=== PATIENT | female | born 1980 | race Two or more races ===

== ENCOUNTER 2019-09-19 12:39 | Emergency (ER) | payer OTHER ==
[~2019-09-19] VITALS: Ht 167.6 cm; Wt 53.1 kg
[2019-09-19 12:55] VITALS: BP 114/77
--- NOTE | 2019-09-19 12:55 | NUR ---
ED Nurse Note: pt walked in to ER from home due to tailbone pain 08/05. pt aao x4 and ambulatory. pt denied trauma. pt reported bump on tailbone as well. pt unable to sit due to tailbone pain. no acute cardiac or pulmonary distress noted at this moment.
--- NOTE | 2019-09-19 13:12 | NUR ---
ED Nurse Note: ERPA at bedside assessing tailbone.
[2019-09-19] MEDS ORDERED: Ketorolac 30mg Inj IM ONE (13:15)
--- NOTE | 2019-09-19 13:18 | Emergency Room Report ---
History of Present Illness General Chief Complaint: Pain Source: Patient Present Illness HPI 39-year-old female with no significant past medical history here complaining of 5 days of a painful mass on her tailbone and perianal. Denies fall or injury, however reports that she goes to the gym a lot and lifts lots of weeks. Patient also reports that she has been sitting along for the past few days due to her recent trip to [place]. Complains of chills however denies fever, shortness of breath, chest pain, palpitation, hemorrhoids, constipation, and other associated symptoms. a Pilonidal cyst is noted without abscess formation and slightly warm to touch.no pus drainage noted. Patient is requesting for symptoms to go away right away as she wants to be able to sit and reports that she went to a chiropractor before coming here and reports that feels worse after chiropractor tried to press on the affected area. Allergies: Coded Allergies: No Known Allergies (Unverified , 09/19/19) Patient History Past Medical History: see triage record Past Surgical History: unable to obtain Pertinent Family History: none Last Menstrual Period: 09/15/19 Now: No Immunizations: UTD Reviewed Nursing Documentation: PMH: Agreed; PSxH: Agreed Nursing Documentation-PMH Past Medical History: No Stated History Review of Systems All Other Systems: negative except mentioned in HPI Physical Exam Vital Signs Date Time Temp Pulse Resp B/P (MAP) Pulse Ox O2 Delivery O2 Flow Rate FiO2 09/19/19 12:44 98.2 81 19 114/77 (89) 96 Room Air Sp02 EP Interpretation: reviewed, normal General Appearance: no apparent distress, alert, GCS 15, non-toxic Head: normocephalic, atraumatic Eyes: bilateral eye normal inspection, bilateral eye PERRL ENT: hearing grossly normal, normal pharynx, no angioedema, normal voice Neck: full range of motion, supple/symm/no masses Respiratory: chest non-tender, lungs clear, normal breath sounds, no rhonchi, no wheezing, speaking full sentences Cardiovascular #1: regular rate, rhythm, no edema, no murmur Gastrointestinal: normal bowel sounds, non tender, soft, non-distended, no guarding, no rebound Rectal: other - piolonidal cyst w/o abscess Genitourinary: no CVA tenderness Musculoskeletal: back normal, normal range of motion, no calf tenderness, gait/ station normal, non-tender Neurologic: alert, motor strength/tone normal, oriented x3, sensory intact, responsive, speech normal Psychiatric: judgement/insight normal, memory normal, mood/affect normal, no suicidal/homicidal ideation Skin: no rash Lymphatic: no adenopathy Medical Decision Making PA Attestation All my diagnosis and treatment plans were reviewed ad discussed with my supervising physician Dr. Mcgovern Diagnostic Impression: Primary Impression: Pilonidal cyst without abscess ER Course 39-year-old female with no significant past medical history here complaining of 5 days of a painful mass on her tailbone and perianal. Denies fall or injury, however reports that she goes to the gym a lot and lifts lots of weeks. Patient also reports that she has been sitting along for the past few days due to her recent trip to [place]. Complains of chills however denies fever, shortness of breath, chest pain, palpitation, hemorrhoids, constipation, and other associated symptoms. a Pilonidal cyst is noted without abscess formation and slightly warm to touch.no pus drainage noted. Patient is requesting for symptoms to go away right away as she wants to be able to sit and reports that she went to a chiropractor before coming here and reports that feels worse after chiropractor tried to press on the affected area. Ddx considered but are not limited to : Cellulitis,mendez cyst with/without abscess superficial infection, abscess Vital signs: are WNL, pt. is afebrile H&PE are most consistent with:pilonidal cyst without abscess ORDERS: Keflex, Bactrim DS, ibuprofen 800, Tylenol 3 very few numbers ED INTERVENTIONS: Toradol DISCHARGE: At this time pt. is stable for d/c to home. Will provide printed patient care instructions, and any necessary prescriptions. Care plan and follow up instructions have been discussed with the patient prior to discharge. I advised patient to follow-up with her primary care physician Dr. Carrizales for further assessment also do not go to chiropractor for the time being, avoid going to the gym and all other strenuous physical activity. Referral to specialist may be needed to be requested by Dr. Carrizales in case of abscess formation Last Vital Signs Date Time Temp Pulse Resp B/P (MAP) Pulse Ox O2 Delivery O2 Flow Rate FiO2 11/24/19 12:44 98.2 81 19 114/77 (89) 96 Room Air Disposition: HOME, SELF-CARE Condition: Stable Scripts Acetaminophen With Codeine (T#3) (TYLENOL #3 TAB*) Y Tab 1 TAB ORAL Q8HR PRN for For Pain for 3 Days, #10 TAB Prov: Darin Coffey 09/19/19 Ibuprofen (Ibu) 800 Mg Tablet 800 MG PO TID, #21 TAB Prov: Darin Coffey 09/19/19 Cephalexin* (KEFLEX*) 500 Mg Capsule 500 MG ORAL EVERY 6 HOURS for 7 Days, #28 CAP Prov: Darin Coffey 09/19/19 Trimethoprim/Sulfamethoxazole 160/800* (BACTRIM DS TABLET*) 1 Each Tablet 1 TAB ORAL TWICE A DAY for 7 Days, #14 TAB Prov: Darin Coffey 09/19/19 Referrals: Todd Carrizales MD (PCP) Patient Instructions: Pilonidal Cyst Additional Instructions: Take medication as directed, follow-up with your primary care physician, if worsening symptoms return to the emergency room Darin Coffey Sep 19, 2019 13:18
[2019-09-19] MEDS ORDERED: CEPHALEXIN500 MG ORAL (13:21)
[2019-09-19] MEDS ORDERED: ACETAMINOPHEN-1 EAC1 ORAL (13:21)
[2019-09-19] MEDS ORDERED: IBU800 MG PO (13:21)
[2019-09-19] MEDS ORDERED: BACTRIM DS TAB1 EAC1 ORAL (13:21)
[2019-09-19 13:26] VITALS: BP 121/64
--- NOTE | 2019-09-19 13:27 | NUR ---
ED Nurse Note: Pt cleared by health care Provider for discharge. DC instructions/prescription was given and explained to pt and verbalized understanding of teachings. All medical deviecs such as ID band removed. Pt is AAO x4, ambulatory and left with all personal belongings.
== END 2019-09-19 13:27 | disposition home or self-care (01) ==
LOC: EMR 13:03
DX: L05.91 Pilonidal cyst without abscess (principal)
CPT/HCPCS: 96372; J1885; Z7502; 99283

== ENCOUNTER 2020-02-18 17:28 | Emergency (ER) | payer MEDICAID, OTHER ==
[~2020-02-18] VITALS: Ht 167.6 cm; Wt 52.2 kg
[~2020-02-18 17:28] MED LIST: ACETAMINOPHEN-1 EAC1 ORAL; BACTRIM DS TAB1 EAC1 ORAL; CEPHALEXIN500 MG ORAL; IBU800 MG PO
[2020-02-18 17:51] VITALS: BP 104/75
--- NOTE | 2020-02-18 18:09 | Emergency Room Report ---
History of Present Illness General Chief Complaint: Skin Rash/Abscess Source: Patient Present Illness HPI 39 YO Female presents to the ED c/o Itching, swelling, and erythema of Left thigh x 2 days. pt. reports increased swelling and "hard" sensation under the skin. pt reports she has been cleaning it regularly. Pt .also request refill of Adderall. She reports she is unable to get a refill from her PCP as she doesn' t see her PCP regularly and she tries not to have to take it so she hasn't been rx'd it in awhile. Pt. denies fevers, chills or swollen tender lymph nodes. Denies lesions/rashes elsewhere on the body. Denies new medications or body washes or creams. Denies swelling of the lips, tongue , throat or airway. Denies wheezing, or shortness of breath. Denies recent travel, recent illness or ill contacts. denies blisters, oral lesions, or sloughing of the skin. She denies pain at this time. Allergies: Coded Allergies: No Known Allergies (Unverified , 09/19/19) COVID-19 Screening Contact w/high risk pt: No Recent Travel to affected area: No Experienced COVID-19 symptoms?: No Patient History Past Medical History: see triage record Past Surgical History: none Pertinent Family History: none Last Menstrual Period: 3 weeks ago Reviewed Nursing Documentation: PMH: Agreed; PSxH: Agreed Nursing Documentation-PMH Past Medical History: No Stated History Review of Systems All Other Systems: negative except mentioned in HPI Physical Exam Vital Signs Date Time Temp Pulse Resp B/P (MAP) Pulse Ox O2 Delivery O2 Flow Rate FiO2 02/18/20 17:51 98.2 16 104/75 02/18/20 17:51 66 Sp02 EP Interpretation: reviewed, normal General Appearance: no apparent distress, alert, GCS 15, non-toxic Head: normocephalic, atraumatic Eyes: bilateral eye normal inspection, bilateral eye PERRL ENT: hearing grossly normal, normal voice Neck: full range of motion Respiratory: chest non-tender, lungs clear, normal breath sounds, no wheezing, speaking full sentences Cardiovascular #1: regular rate, rhythm, normal capillary refill Gastrointestinal: non tender, soft Rectal: deferred Genitourinary: normal inspection Musculoskeletal: back normal, normal range of motion, gait/station normal, non- tender Neurologic: alert, motor strength/tone normal, oriented x3, sensory intact, responsive, speech normal Psychiatric: judgement/insight normal Skin: rash - Insect bite of the left thigh with mild cellulitis. - 1cm in diameter Lymphatic: no adenopathy Medical Decision Making PA Attestation Dr. Mora is my supervising Physician whom patient management has been discussed with. Diagnostic Impression: Primary Impression: Insect bite Qualified Codes: S70.362A - Insect bite (nonvenomous), left thigh, initial encounter; W57.XXXA - Bitten or stung by nonvenomous insect and other nonvenomous arthropods, initial encounter Additional Impression: Cellulitis Qualified Codes: L03.116 - Cellulitis of left lower limb ER Course 39 YO Female presents to the ED c/o Itching, swelling, and erythema of Left thigh x 2 days. pt. reports increased swelling and "hard" sensation under the skin. pt reports she has been cleaning it regularly. Pt .also request refill of Adderall. She reports she is unable to get a refill from her PCP as she doesn' t see her PCP regularly and she tries not to have to take it so she hasnt been rx'd it in awhile. Pt. denies fevers, chills or swollen tender lymph nodes. Denies lesions/rashes elsewhere on the body. Denies new medications or body washes or creams. Denies swelling of the lips, tongue , throat or airway. Denies wheezing, or shortness of breath. Denies recent travel, recent illness or ill contacts. denies blisters, oral lesions, or sloughing of the skin Ddx considered but are not limited to cellulitis, scabies, insect bites, tic bites, spider bites, contact dermatitis, Drug reaction, allergic reaction, fungal infection, lice. Vital signs: are WNL, pt. is afebrile H&PE are most consistent with Insect bite of the left thigh with mild cellulitis. ORDERS: none required at this time, the diagnosis is clinical ED INTERVENTIONS: None required at this time. d/w pt. that for controlled substance refills she needs to have that done by her primary prescribing physician or psychiatric professional. D/w pt. that Adderall is not a medication that is routinely refilled at the emergency department on an emergent basis. D/w pt. will give [facility] information. DISCHARGE: At this time pt. is stable for d/c to home. Will provide printed patient care instructions, and any necessary prescriptions. Care plan and follow up instructions have been discussed with the patient prior to discharge. Last Vital Signs Date Time Temp Pulse Resp B/P (MAP) Pulse Ox O2 Delivery O2 Flow Rate FiO2 02/18/20 17:51 98.2 66 16 104/75 (85) Disposition: HOME, SELF-CARE Condition: Stable Scripts No Active Prescriptions or Reported Meds Referrals: Todd Carrizales MD (PCP) [facility] Patient Instructions: Cellulitis, [id number], Insect Bite, [id number] Additional Instructions: Take medications as directed. Follow up with a Primary Care Provider in 3-5 days, even if your symptoms have resolved. --Please review [facility] for medication management, if you do not already have a primary care provider who is regularly prescribing and following you. Return sooner to ED if new symptoms occur, or current symptoms become worse. - Please note that this Emergency Department Report was dictated using [employer] technology software, occasionally this can lead to erroneous entry secondary to interpretation by the dictation equipment. Maite Baez Feb 18, 2020 18:09
[2020-02-18] MEDS ORDERED: CEPHALEXIN500 MG ORAL (18:11)
[2020-02-18] MEDS ORDERED: ANTI-ITCH28 G1 TP (18:11)
--- NOTE | 2020-02-18 18:16 | NUR ---
ER DISCHARGE NOTE: Patient is cleared to be discharged per ERMD. Patient was given dc and prescription instructions. Patient was able to verbalize understanding of it. ID band removed. Patient ambulated out with steady gait with all her belongings.
== END 2020-02-18 18:20 | disposition home or self-care (01) ==
LOC: EMR 18:00
DX: S70.362A Insect bite (nonvenomous), left thigh, initial encounter (principal); L03.116 Cellulitis of left lower limb; W57.XXXA Bitten or stung by nonvenomous insect and other nonvenomous arthropods, initial encounter; Y92.9 Unspecified place or not applicable
CPT/HCPCS: 99281

== ENCOUNTER 2020-03-28 11:38 | Emergency (ER) | payer MEDICAID, OTHER ==
[~2020-03-28] VITALS: Ht 170.2 cm; Wt 53.1 kg
[~2020-03-28 11:38] MED LIST changes: +ANTI-ITCH28 G1 TP
[2020-03-28 12:15] VITALS: BP 99/65
[2020-03-28 12:32] LABS: BASOPHILS % (AUTO) 0.8 % (0.0-2.0); EOSINOPHILS % (AUTO) 0.5 % (0.0-3.0); HEMATOCRIT 37.8 % (37.0-47.0); HEMOGLOBIN 13.8 G/DL (12.0-16.0); LYMPHOCYTES % (AUTO) 19.8 % (20.0-45.0); MEAN CORPUSCULAR VOLUME 87 FL (80-99); MONOCYTES % (AUTO) 6.9 % (1.0-10.0); NEUTROPHILS % (AUTO) 72.1 % (45.0-75.0); PLATELET COUNT 242 K/UL (150-450); RED BLOOD COUNT 4.34 M/UL (4.20-5.40); RED CELL DISTRIBUTION WIDTH 10.7 % (11.6-14.8)
[2020-03-28 12:33] LABS: APPEARANCE,URINE VERY CLOUDY; BILIRUBIN, URINE NEGATIVE (NEGATIVE); GLUCOSE, URINE (UA) NEGATIVE (NEGATIVE); KETONES,URINE 1+ (NEGATIVE); LEUKOCYTE ESTERASE ,URINE 3+ (NEGATIVE); NITRITE,URINE POSITIVE (NEGATIVE); PH,URINE 5 (4.5-8.0); PROTEIN,URINE 3+ (NEGATIVE); UROBILINOGEN,URINE NORMAL MG/DL (0.0-1.0)
[2020-03-28 12:34] LABS: COLOR,URINE YELLOW
[2020-03-28 12:50] LABS: ANION GAP 7 mmol/L (5-15); BLOOD UREA NITROGEN 13 mg/dL (7-18); CALCIUM 9.1 MG/DL (8.5-10.1); CARBON DIOXIDE 30 MMOL/L (21-32); CHLORIDE 105 MMOL/L (98-107); CREATININE 0.8 MG/DL (0.55-1.30); POTASSIUM 4.1 MMOL/L (3.5-5.1); SODIUM 142 MMOL/L (136-145)
[2020-03-28 12:55] LABS: ALANINE AMINOTRANSFERASE 19 U/L (12-78); ALBUMIN 3.9 G/DL (3.4-5.0); ALBUMIN/GLOBULIN RATIO 1.1 (1.0-2.7); ALKALINE PHOSPHATASE 34 U/L (46-116); ASPARTATE AMINO TRANSFERASE 12 U/L (15-37); BILIRUBIN,TOTAL 0.5 MG/DL (0.2-1.0)
[2020-03-28] MEDS ORDERED: cefTRIAXone 1 GM in NS 55 ML IVPB ONE (13:00)
[2020-03-28] MEDS ORDERED: CEPHALEXIN500 M1 ORAL (13:34)
[2020-03-28] MEDS ORDERED: PHENAZOPYRIDIN100 MG ORAL (13:35)
--- NOTE | 2020-03-28 13:45 | Emergency Room Report ---
History of Present Illness General Chief Complaint: Female Urogenital Problems Source: Patient Present Illness HPI Disclaimer: Please note that this report is being documented using [employer] technology. This can lead to erroneous entry secondary to incorrect interpretation by the dictating instrument. HPI: 39-year-old female no reported past medical history presented for complaints of dysuria and hematuria. Symptoms present for the last 2 days. She denies any fevers nausea or vomiting. No shortness of breath or cough. Mild lower abdominal pain. She actually denies vaginal bleeding but believes the blood is coming from her urine. Menstrual cycle 7 days ago. PMH: Patient denies any past medical history PSH: Reviewed Social Hx: She denies smoking drinking or illicit drug use Allergies: Coded Allergies: CIPROFLOXACIN (Verified Allergy, Unknown, 03/28/20) swelling COVID-19 Screening Contact w/high risk pt: No Recent Travel to affected area: No Experienced COVID-19 symptoms?: No COVID-19 Testing performed HVAC LEAD: No Patient History Last Menstrual Period: 03/24/20 Reviewed Nursing Documentation: PMH: Agreed; PSxH: Agreed Nursing Documentation-PMH Past Medical History: No Stated History Review of Systems All Other Systems: negative except mentioned in HPI Physical Exam Vital Signs Date Time Temp Pulse Resp B/P (MAP) Pulse Ox O2 Delivery O2 Flow Rate FiO2 03/28/20 11:45 98.2 98 15 99/65 (76) 99 Room Air Sp02 EP Interpretation: reviewed, normal General Appearance: well appearing, no apparent distress Head: normocephalic, atraumatic Eyes: bilateral eye PERRL, bilateral eye EOMI ENT: hearing grossly normal, moist mucus membranes Neck: full range of motion, supple Respiratory: lungs clear, normal breath sounds, no rhonchi, no respiratory distress, no retraction, no wheezing Cardiovascular #1: normal peripheral pulses, regular rate, rhythm, no murmur Gastrointestinal: non tender, soft, non-distended, no guarding Musculoskeletal: other - No CVA tenderness bilaterally Neurologic: alert, oriented x3, no focal defects Skin: normal color, warm/dry Medical Decision Making Diagnostic Impression: Primary Impression: UTI (urinary tract infection) ER Course MDM: Differential diagnosis included but not limited to UTI, pyelonephritis, less likely ectopic . Less likely surgical abdominal disease Clinical course-patient placed on a gurney, IV fluids given. Laboratory studies were sent. No leukocytosis, urinalysis positive leukocytes and nitrites with blood. Antibiotics given. Patient otherwise nontoxic no acute distress will be discharged home with antibiotics and Pyridium. Follow-up PMD. Return precautions given. Labs - Laboratory Tests Test 03/28/20 12:13 White Blood Count 8.0 K/UL (4.8-10.8) Red Blood Count 4.34 M/UL (4.20-5.40) Hemoglobin 13.8 G/DL (12.0-16.0) Hematocrit 37.8 % (37.0-47.0) Mean Corpuscular Volume 87 FL (80-99) Mean Corpuscular Hemoglobin 31.7 PG (27.0-31.0) H Mean Corpuscular Hemoglobin Concent 36.5 G/DL (32.0-36.0) H Red Cell Distribution Width 10.7 % (11.6-14.8) L Platelet Count 242 K/UL (150-450) Mean Platelet Volume 5.6 FL (6.5-10.1) L Neutrophils (%) (Auto) 72.1 % (45.0-75.0) Lymphocytes (%) (Auto) 19.8 % (20.0-45.0) L Monocytes (%) (Auto) 6.9 % (1.0-10.0) Eosinophils (%) (Auto) 0.5 % (0.0-3.0) Basophils (%) (Auto) 0.8 % (0.0-2.0) Urine Color Yellow Urine Appearance Very cloudy Urine pH 5 (4.5-8.0) Urine Specific [place] 1.025 (1.005-1.035) Urine Protein 3+ (NEGATIVE) H Urine Glucose (UA) Negative (NEGATIVE) Urine Ketones 1+ (NEGATIVE) H Urine Blood 5+ (NEGATIVE) H Urine Nitrite Positive (NEGATIVE) H Urine Bilirubin Negative (NEGATIVE) Urine Urobilinogen Normal MG/DL (0.0-1.0) Urine Leukocyte Esterase 3+ (NEGATIVE) H Urine RBC Tntc /HPF (0 - 2) H Urine WBC Tntc /HPF (0 - 2) H Urine Squamous Epithelial Cells Many /LPF (NONE/OCC) H Urine Bacteria Moderate /HPF (NONE) H Urine HCG, Qualitative Negative (NEGATIVE) Sodium Level 142 MMOL/L (136-145) Potassium Level 4.1 MMOL/L (3.5-5.1) Chloride Level 105 MMOL/L (98-107) Carbon Dioxide Level 30 MMOL/L (21-32) Anion Gap 7 mmol/L (5-15) Blood Urea Nitrogen 13 mg/dL (7-18) Creatinine 0.8 MG/DL (0.55-1.30) Estimated Glomerular Filtration Rate > 60 mL/min (>60) Glucose Level 86 MG/DL (74-106) Calcium Level 9.1 MG/DL (8.5-10.1) Total Bilirubin 0.5 MG/DL (0.2-1.0) Aspartate Amino Transferase (AST) 12 U/L (15-37) L Alanine Aminotransferase (ALT) 19 U/L (12-78) Alkaline Phosphatase 34 U/L (46-116) L Total Protein 7.4 G/DL (6.4-8.2) Albumin 3.9 G/DL (3.4-5.0) Globulin 3.5 g/dL Albumin/Globulin Ratio 1.1 (1.0-2.7) Lipase 311 U/L (73-393) On reevaluation: Patient in no acute distress Plan-discharge home on antibiotics and follow-up PMD. Given return precautions. Last Vital Signs Date Time Temp Pulse Resp B/P (MAP) Pulse Ox O2 Delivery O2 Flow Rate FiO2 03/28/20 12:15 98.2 15 99/65 99 Room Air 03/28/20 11:45 98 Status: improved Disposition: HOME, SELF-CARE Condition: Stable Scripts Phenazopyridine Hcl* (PYRIDIUM*) 100 Mg Tablet 100 MG ORAL THREE TIMES A DAY PRN for For Pain, #20 TAB Prov: Luiz Moore M.D. 03/28/20 Cephalexin* (KEFLEX*) 500 Mg Tablet 500 MG ORAL EVERY 6 HOURS for 7 Days, CAP Prov: Luiz Moore M.D. 03/28/20 Patient Instructions: Urinary Tract Infection Additional Instructions: Patient is instructed to follow-up with her primary care doctor, primary care clinic or [facility] in 1 to 2 days. Patient instructed to return for any worsening symptoms or concerns. Disclaimer: Please note that this report is being documented using [employer] technology. This can lead to erroneous entry secondary to incorrect interpretation by the dictating instrument. Luiz Moore M.D. Mar 28, 2020 13:45
[2020-03-28 13:47] VITALS: BP 100/75
== END 2020-03-28 13:47 | disposition home or self-care (01) ==
LOC: EMR 12:55
DX: N39.0 Urinary tract infection, site not specified (principal); R10.30 Lower abdominal pain, unspecified; Z88.8 Allergy status to other drugs, medicaments and biological substances
CPT/HCPCS: 36415; 80053; 81003; 81025; 83690; 85025; 87086; 87181; 96365; J0696; J7030; Z7502; 99284